=== PATIENT | female | born 1935 | race Caucasian/White ===

== ENCOUNTER 2016-08-16 10:08 | Inpatient (IN) ==
[2016-08-16] MEDS ORDERED: ZALEPLON 5 MG CAPSULE PO PRN (11:05)
[2016-08-16] MEDS ORDERED: MAGNESIUM SULF RIDER 2 GM in PREMIX 1 EACH IV PRN (11:05)
[2016-08-16] MEDS ORDERED: MAGNESIUM SULF RIDER 4 GM in PREMIX 1 EACH IV PRN (11:05)
[2016-08-16] MEDS ORDERED: ONDANSETRON 4 MG/2 ML VIAL IV PRN (11:05)
[2016-08-16] MEDS ORDERED: ACETAMINOPHEN 325 MG TABLET PO PRN (11:05)
[2016-08-16 12:23] LABS: Albumin 3.9 G/DL (3.4-5.0); Calcium 9.1 MG/DL (8.5-10.1); Osmolality,Calculated 280.8 MOS/KG (273-304); Potassium 4.7 MMOL/L (3.5-5.1); Total Protein 6.8 G/DL (6.4-8.3)
--- NOTE | 2016-08-16 13:09 | EKG Report ---
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
[2016-08-16] MEDS ORDERED: SOTALOL 80 MG TABLET PO ONE (13:23)
[2016-08-16 13:24] LABS: Partial Thromboplastin Time 32.7 SECS (0-40)
--- NOTE | 2016-08-16 13:27 | Event Note ---
Duplicate Maker: Dr. Narvaez Ms. Wu, 80-year-old female was directly admitted from the cardiovascular [facility] early this morning for recurrent symptomatic atrial tachycardia. She has a past medical history of atrial fibrillation (chronically anticoagulated with Coumadin), sick sinus syndrome ( now status post dual-chamber pacemaker), diastolic left ventricular dysfunction (most recent ejection fraction around 45+%), coronary artery disease (with prior myocardial infarction), dyslipidemia and TIA. Yesterday, she began feeling fatigued, weak, short of breath and experiencing heart racing/ palpitations. Due to her symptomology and recurrent rhythm disturbance patient was admitted to the hospital in order to be evaluated for rate control as well as possible change from sotalol to amiodarone. Patient was seen and examined on the telemetry unit. Please see scanned in H&P from the cardiovascular [facility] for full details. At this point , we will continue patient's preadmission medications with the exception of her sotalol. After speaking with Dr. Regalado, we will increase patient's sotalol from 120 mg to 160 mg twice daily. If patient's symptoms do not improve , we will then consider changing from sotalol to amiodarone.
[2016-08-16 13:29] LABS: INR 2.7
[2016-08-16 13:30] LABS: PT Patient Result 30.3 SECS
[2016-08-16] MEDS: PANTOPRAZOLE 40 MG TABLET PO SCH (14:01)
[2016-08-16] MEDS: WARFARIN 2 MG TABLET PO SCH (14:02)
--- NOTE | 2016-08-16 14:16 | XRay Report ---
Chest, 2 views History short of breath Comparison 09/23/2014 The heart is mildly enlarged pacemaker present No congestive failure or confluent infiltrate is seen Impression: Mild cardiomegaly PROCEDURE INTERPRETED AT [facility] Final Report Signed by: Dr. Ally Rodriguez
[2016-08-16] MEDS ORDERED: ENOXAPARIN 40 MG/0.4 ML SYRINGE SUBCUT SCH (21:00)
[2016-08-16] MEDS: RANOLAZINE 500 MG TABLET PO SCH (21:25)
[2016-08-16] MEDS: MAGNESIUM CHLORIDE 64 MG TABLET PO SCH (21:26)
[2016-08-16] MEDS: LOSARTAN 25 MG TABLET PO SCH (21:27)
[2016-08-16] MEDS: SOTALOL 80 MG TABLET PO SCH (21:27)
[2016-08-17 05:17] LABS: Basophils % 0.8 % (0.0-0.8); Eosinophils # 0.1 10*3/uL (0.0-0.87); Eosinophils % 2.2 % (0.00-10.9); Hematocrit 33.7 VOL% (35.7-47.0); Hemoglobin 11.3 GM/DL (12.0-16.0); Immature Granulocytes % 0.5 %; Immature Granulocytes Absolute 0.02 #; Lymphocytes # 1.3 10*3/uL (1.4-4.0); Lymphocytes % 35.6 % (21.3-54.2); Mean Corpuscular HGB Conc 33.5 GM/DL (32-36); Mean Corpuscular Hemoglobin 32 PG (27-34); Mean Corpuscular Volume 95.7 FL (87-102); Mean Platelet Volume 9.5 FL (9.6-12.0); Monocytes # 0.5 10*3/uL (0.11-0.8); Monocytes % 12.5 % (1.7-12.7); Neutrophils # 1.8 10*3/uL (1.4-7.4); Neutrophils % 48.4 % (38.7-73.9); Platelet Count 154 T/CUMM (130-400); Red Blood Count 3.52 MC/CUMM (3.8-5.5); Red Cell Distribution Width 14.6 % (9.3-17.3); White Blood Count 3.7 T/CUMM (4-12)
[2016-08-17 05:23] LABS: INR 2.6
[2016-08-17 05:39] LABS: PT Patient Result 29.3 SECS
[2016-08-17 05:56] LABS: Calcium 8.6 MG/DL (8.5-10.1); Magnesium 1.9 MG/DL (1.8-2.4); Osmolality,Calculated 280.5 MOS/KG (273-304); Potassium 5.2 MMOL/L (3.5-5.1); Risk Ratio 5.32; VLDL CHOLESTEROL 83.4 MG/DL
[2016-08-17] MEDS: LEVOTHYROXINE 75 MCG TABLET PO SCH (06:41)
--- NOTE | 2016-08-17 08:33 | EKG Report ---
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
[2016-08-17] MEDS: ASPIRIN EC 81 MG TABLET PO SCH (09:24)
[2016-08-17] MEDS: FOLIC ACID 1 MG TABLET PO SCH (09:25)
[2016-08-17] MEDS: MAGNESIUM CHLORIDE 64 MG TABLET PO SCH ×2 (09:25→20:49)
[2016-08-17] MEDS: RANOLAZINE 500 MG TABLET PO SCH ×2 (09:26→20:49)
[2016-08-17] MEDS: SOTALOL 80 MG TABLET PO SCH ×2 (09:26→20:50)
[2016-08-17] MEDS: COLESTIPOL 1 GM TABLET PO SCH (09:27)
[2016-08-17] MEDS: PANTOPRAZOLE 40 MG TABLET PO SCH (09:28)
[2016-08-17] MEDS: LOSARTAN 25 MG TABLET PO SCH ×2 (09:28→20:50)
[2016-08-17 11:58] LABS: Bilirubin,Total 0.5 MG/DL (0.2-1.0)
[2016-08-17] MEDS ORDERED: WARFARIN 1 MG TABLET PO SCH (13:20)
[2016-08-17] MEDS ORDERED: ROSUVASTATIN 10 MG TABLET PO SCH (13:49)
--- NOTE | 2016-08-17 16:25 | Cardiology Progress Note ---
Assessment and Plan - Time spent with patient Time spent with patient: Greater than 30 minutes (1) Atrial fibrillation Status: Resolved Assessment and plan: SEE PLAN OF CARE LISTED BELOW. Current Visit: No Qualifiers: Atrial fibrillation type: paroxysmal Qualified Code(s): I48.0 - Paroxysmal atrial fibrillation (2) CAD (coronary artery disease) Status: Chronic Assessment and plan: SEE PLAN OF CARE LISTED BELOW. Current Visit: No (3) Chronic anticoagulation Status: Chronic Assessment and plan: SEE PLAN OF CARE LISTED BELOW. Current Visit: Yes (4) History of pacemaker Status: Chronic Assessment and plan: SEE PLAN OF CARE LISTED BELOW. Current Visit: Yes (5) Dyslipidemia Status: Chronic Assessment and plan: SEE PLAN OF CARE LISTED BELOW. Current Visit: Yes (6) Hypertension Status: Chronic Assessment and plan: SEE PLAN OF CARE LISTED BELOW. Current Visit: Yes (7) Hypertriglyceridemia Status: Chronic Assessment and plan: SEE PLAN OF CARE LISTED BELOW. Current Visit: Yes (8) Elevated serum creatinine Status: Acute Assessment and plan: SEE PLAN OF CARE LISTED BELOW. Current Visit: Yes (9) History of TIA (transient ischemic attack) Status: Chronic Assessment and plan: SEE PLAN OF CARE LISTED BELOW. Current Visit: Yes Cardiology - PN: Subj Interval history: Patent Prosecution Paralegal: Dr. Narvaez SUMMARY: Ms. Wu, 80-year-old female was directly admitted from the cardiovascular [place] [facility] the [facility] early this morning for recurrent symptomatic atrial tachycardia. She has a past medical history of atrial fibrillation (chronically anticoagulated with Coumadin), sick sinus syndrome ( now status post dual-chamber pacemaker), diastolic left ventricular dysfunction (most recent ejection fraction around 45+%), coronary artery disease (with prior myocardial infarction), dyslipidemia and TIA. Wesnesday, she began feeling fatigued, weak, short of breath and experiencing heart racing/ palpitations. Due to her symptomology and recurrent rhythm disturbance patient was admitted to the hospital in order to be evaluated for rate control as well as possible change from sotalol to amiodarone. Yesterday, patient sotalol was increased from 120 mg to 160 mg twice daily. August UPDATE -patient was seen and examined in the telemetry unit. She has now converted back to normal sinus rhythm after increasing sotalol dose to 160 mg twice daily. Patient is doing well and denies fatigue, weakness and shortness of breath. She is also without palpitations and heart racing. At this point, she is anxious for discharge home. However, I encouraged her that it is ideal that she stay 1 more as she had increase her sotalol dose yesterday. In the morning we will review her EKG. If her QT interval is stable and she remains in normal sinus rhythm she may be eligible for discharge home. She is in favor of this plan. INR today is 2.6. Will continue current Coumadin dose. Further plan and addendum to follow per Dr. Regalado. ASSESSMENT/PLAN: 1. SYMPTOMATIC ATRIAL TACHYCARDIA - History of PAF. Patient is now converted back to normal sinus rhythm after increasing patient's sotalol dose yesterday. At this point, we will continue current sotalol dose and observe patient for at least 1 more night on the telemetry unit. I have ordered an EKG in the morning to evaluate patient's QT interval. Will anticipate discharge tomorrow if patient remains in normal sinus rhythm and patient's QT is stable. Continue anticoagulation with Coumadin. INR today is therapeutic at 2.6. Daily INR. 2. CHRONIC ANTICOAGULATION - Chronically anticoagulated with Coumadin as patient has paroxysmal atrial fibrillation with history of TIA. INR today is therapeutic at 2.6. Continue current Coumadin dose. Daily INR. 3. HISTORY OF DUAL CHAMBER PACEMAKER - This is clinically stable. Continue current plan of care. 4. CORONARY ARTERY DISEASE - Stable at present. Continue current plan of care. 5. DYSLIPIDEMIA - Continue lipid-lowering agent. 6. HISTORY OF TIA - Clinically stable. Continue current plan of care. 7. ELEVATED CREATININE - Creatinine improved today to 1.2. We will continue to monitor this with daily BMP. 8. HYPERTRIGLYCERIDEMIA - I will add Fish Oil. 9. HYPERTENSION -patient's blood pressure is suboptimally controlled. I will add Norvasc today. Exam (Progress Note) - Constitutional Vitals: Period Temp Pulse Resp BP Sys/Marquez Pulse Ox Last 24 Hr 97.0 F-98 F 60-67 18-20 124-170/60-75 95-99 Exam: General: Appears well with no apparent distress. Pleasant and cooperative. Appears comfortable. HEENT: PERRL, normocephalic, atraumatic. Mucous membranes moist. No jaundice noted. Conjunctiva moist and clear, sclerae anicteric Neck: No JVD/HJR, no thyromegaly or lymphadenopathy noted. No carotid bruit appreciated Cardiac: Regular rate and rhythm. No murmur rub or gallop. Lungs: Clear to auscultation without accessory muscle use to assist the respiratory pattern. Not requiring oxygen. Abdomen: Soft, bowel sounds normoactive. Nontender and nondistended. No abdominal bruit or thrill noted. No masses noted. Extremities: No clubbing, cyanosis noted. No edema noted. Upper extremity pulses 2+. Lower extremity pulses 2+. Capillary refill less than 3 seconds. Skin: No unusual lesions or rashes. No skin breakdown appreciated. Neuro: Awake, alert and oriented 3. Moves all extremities well without hemiparesis or paralysis. No essential tremor is appreciated. Result/EKG - Labs CBC & BMP: 08/17/16 05:02 08/17/16 05:02 Lab Results: I have reviewed the past 24 hour labs Labs: Laboratory Results - last 24 hr 08/16/16 08/17/16 08/17/16 11:34 05:02 05:02 WBC 3.7 L RBC 3.52 L Hgb 11.3 L Hct 33.7 L MCV 95.7 MCH 32 MCHC 33.5 RDW 14.6 Plt Count 154 MPV 9.5 L Neut % (Auto) 48.4 Lymph % (Auto) 35.6 Irwin % (Auto) 12.5 Eos % (Auto) 2.2 Baso % (Auto) 0.8 Neut # (Auto) 1.8 Lymph # (Auto) 1.3 L Irwin # (Auto) 0.5 Eos # (Auto) 0.1 Baso # (Auto) 0.0 Immature Gran % 0.5 Nucleated RBC % 0.0 Immature Gran # 0.02 Nucleated RBCs # 0.00 INR 2.6 PT Patient/Control Mix 29.3 Sodium Potassium Chloride Carbon Dioxide Anion Gap BUN Creatinine GFR Calculation BUN/Creatinine Ratio Glucose POC Glucose Calculated Osmolality Calcium Magnesium Total Bilirubin 0.50 Triglycerides Cholesterol LDL Cholesterol VLDL Cholesterol HDL Cholesterol Heart Disease Risk Ratio 08/17/16 08/17/16 08/17/16 05:02 07:05 11:46 WBC RBC Hgb Hct MCV MCH MCHC RDW Plt Count MPV Neut % (Auto) Lymph % (Auto) Irwin % (Auto) Eos % (Auto) Baso % (Auto) Neut # (Auto) Lymph # (Auto) Irwin # (Auto) Eos # (Auto) Baso # (Auto) Immature Gran % Nucleated RBC % Immature Gran # Nucleated RBCs # INR PT Patient/Control Mix Sodium 139 Potassium 5.2 H Chloride 111 H Carbon Dioxide 20 L Anion Gap 13.2 BUN 23 H Creatinine 1.20 H GFR Calculation 39 BUN/Creatinine Ratio 19.00 Glucose 101 POC Glucose 111 H 111 H Calculated Osmolality 280.5 Calcium 8.6 Magnesium 1.9 Total Bilirubin Triglycerides 417 H Cholesterol 202 H LDL Cholesterol 93.0 VLDL Cholesterol 83.4 HDL Cholesterol 38 L Heart Disease Risk Ratio 5.32
[2016-08-17] MEDS: amLODIPine 5 MG TABLET PO SCH (17:20)
[2016-08-17] MEDS: OMEGA 3 ACID ETHYL ESTERS 1 GM CAPSULE PO SCH (20:50)
[2016-08-18 03:50] LABS: Basophils % 0.6 % (0.0-0.8); Eosinophils # 0.1 10*3/uL (0.0-0.87); Eosinophils % 2.3 % (0.00-10.9); Hematocrit 32.3 VOL% (35.7-47.0); Hemoglobin 10.8 GM/DL (12.0-16.0); Immature Granulocytes % 0.6 %; Immature Granulocytes Absolute 0.02 #; Lymphocytes # 1.5 10*3/uL (1.4-4.0); Mean Corpuscular HGB Conc 33.4 GM/DL (32-36); Mean Corpuscular Hemoglobin 32 PG (27-34); Mean Corpuscular Volume 95.3 FL (87-102); Mean Platelet Volume 9.6 FL (9.6-12.0); Monocytes # 0.4 10*3/uL (0.11-0.8); Monocytes % 11.9 % (1.7-12.7); Neutrophils # 1.6 10*3/uL (1.4-7.4); Neutrophils % 43.6 % (38.7-73.9); Platelet Count 160 T/CUMM (130-400); Red Blood Count 3.39 MC/CUMM (3.8-5.5); Red Cell Distribution Width 14.3 % (9.3-17.3); White Blood Count 3.5 T/CUMM (4-12)
[2016-08-18 04:10] LABS: INR 2.4
[2016-08-18 04:17] LABS: Calcium 8.8 MG/DL (8.5-10.1); Magnesium 1.8 MG/DL (1.8-2.4); Osmolality,Calculated 282.4 MOS/KG (273-304); Potassium 4.8 MMOL/L (3.5-5.1)
[2016-08-18 04:18] LABS: PT Patient Result 26.8 SECS
[2016-08-18] MEDS: LEVOTHYROXINE 75 MCG TABLET PO SCH (06:38)
--- NOTE | 2016-08-18 08:16 | EKG Report ---
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
[2016-08-18] MEDS ORDERED: FUROSEMIDE 20 MG TABLET PO SCH (09:00)
[2016-08-18] MEDS: LOSARTAN 25 MG TABLET PO SCH (09:00)
[2016-08-18] MEDS: RANOLAZINE 500 MG TABLET PO SCH (09:00)
[2016-08-18] MEDS: PANTOPRAZOLE 40 MG TABLET PO SCH (09:00)
[2016-08-18] MEDS: OMEGA 3 ACID ETHYL ESTERS 1 GM CAPSULE PO SCH (09:00)
[2016-08-18] MEDS: SOTALOL 80 MG TABLET PO SCH (09:00)
[2016-08-18] MEDS: FOLIC ACID 1 MG TABLET PO SCH (09:00)
[2016-08-18] MEDS: MAGNESIUM CHLORIDE 64 MG TABLET PO SCH (09:00)
[2016-08-18] MEDS: amLODIPine 5 MG TABLET PO SCH (09:01)
[2016-08-18] MEDS: ASPIRIN EC 81 MG TABLET PO SCH (09:01)
[2016-08-18] MEDS: COLESTIPOL 1 GM TABLET PO SCH (09:04)
[2016-08-18 11:45] VITALS: BP 139/62
--- NOTE | 2016-08-18 12:57 | Discharge Summary ---
Hospital Course - Hospital Course Hospital Course: The patient was admitted with a prolonged recurrent episode of atrial fibrillation. it Bother her. She feels weak and tired when it occurs. She can tell when it comes and goes. She was admitted. It was elected to increase her sotalol. I was told she is on 120 mg p.o. twice daily and I increase to 160 mg p.o. twice daily. However, I see on discharge medicine she is on 80 mg p.o. twice daily. Whatever the case, will try the higher dose of sotalol. She has not had any pro- arrhythmia. She did convert to sinus rhythm with just a higher extra dose of sotalol. She has remained in sinus bradycardia or occasional atrial paced beats. Is ambulating without arrhythmia or heart failure. Her blood pressure is elevated so it we added amlodipine 5 mg daily. Her blood pressures now to goal. She is up and about and doing well and discharged to home. She will follow-up with Dr. Narvaez in about 2-4 weeks. She will get a PT/INR where she usually gets it in the next 1-2 weeks. Of note, her triglycerides were elevated. Thus, we elected to add visual capsules 1 g p.o. twice daily. She will try this [id number]. So far she is tolerating it. Diagnosis - Discharge Diagnosis (1) Paroxysmal atrial fibrillation Status: Acute (2) Chronic anticoagulation Status: Chronic (3) Dyslipidemia Status: Chronic (4) History of TIA (transient ischemic attack) Status: Chronic (5) History of pacemaker Status: Chronic (6) Hypertension Status: Chronic (7) Hypertriglyceridemia Status: Chronic (8) Hypomagnesemia Status: Acute (9) Shortness of breath Status: Acute (10) CAD (coronary artery disease) Status: Chronic Discharge Plan - Discharge Data Disposition: Disch To Home/Self Care Condition at Discharge: Stable Discharge Diet: heart healthy, low fat, low cholesterol Activity: resume usual activities as tolerated Hygiene: no restrictions Weight Bearing at Discharge: full weight bearing Driving: no restrictions - Discharge Medications New amLODIPine [Norvasc] 5 mg PO DAILY #30 tablet Sotalol [Betapace] 160 mg PO BID #60 tablet [place] 3 Acid Ethyl Esters [Lovaza] 1 gm PO BID capsule Continue Ergocalciferol (Vitamin D2) [Vitamin D2] 50,000 unit PO Q7DAY Aspirin EC Tab 81 mg PO DAILY Levothyroxine Sodium [Synthroid] 75 mcg PO DAILY@0700 Rosuvastatin Calcium [Crestor] 5 mg PO MOWEFR Ranolazine [Ranexa] 500 mg PO BID #60 tablet Folic Acid Tab 1 mg PO DAILY Esomeprazole Magnesium [Nexium] 40 mg PO DAILY Magnesium Chloride [Slow Mag] 192 mg PO BID Warfarin [Coumadin] 1 mg PO MOFR Warfarin [Coumadin] 2 mg PO SUTUWETHSA Clorazepate [Tranxene] 3.75 mg PO BID PRN PRN Reason: Anxiety Colestipol [Colestid] 2 gm PO DAILY Furosemide Tab [Lasix Tab] 20 mg PO QOTHER DAY Losartan [Cozaar] 25 mg PO BID Discontinued Sotalol [Betapace] 80 mg PO BID - Follow Up or Referral Follow Up: Alexei Narvaez MD [Physician] - (In about 2-4 weeks. the patient is to get a PT/INR in about 1-2 weeks, at the location where she usually checks her PT /INR.) - Forms/Instructions Exam - Constitutional Vitals: Period Temp Pulse Resp BP Sys/Marquez Pulse Ox Last 24 Hr 96.7 F-98.6 F 62-73 17-18 127-188/62-81 97-99 Exam: HEENT: Pupils equal, reactive to light and accommodation Neck: NoJVD or bruit Lungs clear to auscultation Heart: Regular rhythm rate with normal S1 and S2. Apical S4 Abdomen: No hepatosplenomegaly Spine/extremities: No clubbing, cyanosis, or edema Neuro: Nonfocal Psych: No depression or anxiety Discharge Results Procedures and tests throughout hospitalization: Pending Orders 08/19/16 04:00 BMP w/ Mg [Basic Metabolic Panel w/Mg] IN AM Basic Metabolic Panel IN AM Comp Blood Count Auto Diff IN AM Magnesium IN AM Prothrombin Time INR IN AM 08/20/16 04:00 BMP w/ Mg [Basic Metabolic Panel w/Mg] IN AM Basic Metabolic Panel IN AM Comp Blood Count Auto Diff IN AM Magnesium IN AM Prothrombin Time INR IN AM Labs on day of discharge: Labs from last 24 hours 08/18/16 08/18/16 08/18/16 11:20 06:52 03:10 WBC RBC Hgb Hct MCV MCH MCHC RDW Plt Count MPV Neut % (Auto) Lymph % (Auto) Mccone % (Auto) Eos % (Auto) Baso % (Auto) Neut # (Auto) Lymph # (Auto) Mccone # (Auto) Eos # (Auto) Baso # (Auto) Immature Gran % Nucleated RBC % Immature Gran # Nucleated RBCs # INR PT Patient/Control Mix Sodium 140 Potassium 4.8 Chloride 112 H Carbon Dioxide 19 L Anion Gap 13.8 BUN 20 H Creatinine 1.00 GFR Calculation 48 BUN/Creatinine Ratio 20.00 Glucose 108 H POC Glucose 129 H 104 Calculated Osmolality 282.4 Calcium 8.8 Magnesium 1.8 08/18/16 08/18/16 08/17/16 03:10 03:10 20:51 WBC 3.5 L RBC 3.39 L Hgb 10.8 L Hct 32.3 L MCV 95.3 MCH 32 MCHC 33.4 RDW 14.3 Plt Count 160 MPV 9.6 Neut % (Auto) 43.6 Lymph % (Auto) 41.0 Mccone % (Auto) 11.9 Eos % (Auto) 2.3 Baso % (Auto) 0.6 Neut # (Auto) 1.6 Lymph # (Auto) 1.5 M[place]one # (Auto) 0.4 Eos # (Auto) 0.1 Baso # (Auto) 0.0 Immature Gran % 0.6 Nucleated RBC % 0.0 Immature Gran # 0.02 Nucleated RBCs # 0.00 INR 2.4 PT Patient/Control Mix 26.8 Sodium Potassium Chloride Carbon Dioxide Anion Gap BUN Creatinine GFR Calculation BUN/Creatinine Ratio Glucose POC Glucose 146 H Calculated Osmolality Calcium Magnesium DS: Provider Date of admission: 08/16/16 10:53 Primary care physician: Jhoan Sauceda MD Attending physician on admission: Aj Regalado MD Discharging clinician: Aj Regalado MD
[2016-08-18] MEDS: WARFARIN 2 MG TABLET PO SCH (13:44)
[2016-08-23] MEDS ORDERED: ERGOCALCIFEROL 50,000 UNIT CAPSULE PO SCH (09:00)
== END 2016-08-18 13:45 | disposition home or self-care (01) | DRG 310 ==
LOC: N.TELES → UNDODISOB 08-18 13:45
PROVIDERS: ADMIT Internal Medicine Cardiovascular Disease; ATTEND Internal Medicine Cardiovascular Disease